=== PATIENT | female | born 1990 | race Caucasian/White ===

== ENCOUNTER 2018-02-03 10:12 | Emergency (ER) | payer BC ==
[~2018-02-03] VITALS: Ht 162.6 cm; Wt 79.0 kg
[~2018-02-03 10:12] MED LIST: ADVAIR 250/501 DISK IH; AEROECLIPSE1 EACH MC; ALBUTEROL17 GM IH; ORTHO CYCLEN1 TABLET PO; PREDNISONE50 MG PO; PREFERA-OB P1 TABLET PO; Percocet 5/325,Endoc PO; Tylenol Extra Streng PO; ULTRAM50 MG PO; VENTOLIN HFA18 GM IH; ZOFRAN ODT4 MG PO
[2018-02-03 10:53] LABS: HEMATOCRIT 40.9 % (36.0-46.0); HEMOGLOBIN 14.5 G/DL (11.9-15.5); MCH 34.3 PG (29.0-34.0); MCHC 35.5 G/DL (30.0-36.0); MCV 96.7 FL (83-99); PLATELET COUNT 250 K/uL (156-360); RBC DIS.WIDTH-CV 12.6 % (11.8-14.6); RBC DIS.WIDTH-SD 45.1 % (39-53); RED BLOOD COUNT 4.23 M/uL (3.80-5.20); WHITE BLOOD COUNT 6.4 K/uL (4.1-10.2)
[2018-02-03 11:02] LABS: CHLORIDE 108 mEq/L (99-109)
[2018-02-03 11:03] LABS: D-DIMER ELISA < 150.00 ng/mLDDU (<230); POTASSIUM 4.8 mEq/L (3.7-5.4); SODIUM 139 mEq/L (136-147)
[2018-02-03 11:04] LABS: GLUCOSE 97 mg/dL (70-99)
[2018-02-03 11:08] LABS: CREATININE 0.8 mg/dL (0.6-1.3); GFR ESTIMATE (CALCULATED) > 59 mL/min/
[2018-02-03 11:09] LABS: UREA NITROGEN (BUN) 7 mg/dL (9-23)
[2018-02-03 11:15] LABS: TROP-I INTERPRETATION NEGATIVE; TROPONIN-I < 0.01 ng/mL (0.0-0.30)
[2018-02-03 11:17] LABS: QUANTITATIVE HCG < 4.0 MIU/ML
[2018-02-03] MEDS ORDERED: TESSALON PERLE100 MG PO (12:35)
[2018-02-03] MEDS ORDERED: PROVENTIL,2.5 MG/3 M IH (12:35)
[2018-02-03] MEDS ORDERED: VENTOLIN HFA18 GM IH (12:35)
[2018-02-03] MEDS ORDERED: FLONASE16 G1 BOTH NARES (12:35)
[2018-02-03 13:20] VITALS: BP 123/71
== END 2018-02-03 14:04 | disposition home or self-care (01) ==
LOC: EME 10:12
PROVIDERS: Nurse Practitioner Family
DX: J45.909 Unspecified asthma, uncomplicated (principal); R07.9 Chest pain, unspecified; R06.02 Shortness of breath; Z88.6 Allergy status to analgesic agent
CPT/HCPCS: 71046; 80048; 84484; 84702; 85027; 85379; 93005; 94640; 99281; 99285; J2930; J7120